=== PATIENT | female | born 1930 | race Caucasian/White ===

== ENCOUNTER 2018-10-05 12:33 | Emergency (ER) | payer MEDICARE ==
[2018-10-05] MEDS ORDERED: Acetaminophen 500 MG Tab PO ONE (13:14)
--- NOTE | 2018-10-05 13:21 | EDM.PDOC ---
ED HPI GENERAL MEDICAL PROBLEM - General Chief Complaint: Neurological Problem Stated Complaint: FALL LAST NIGHT Time Seen by Provider: 10/05/18 13:10 Source of Information: Reports: Patient, Family, Old Records, RN History Limitations: Reports: No Limitations - History of Present Illness INITIAL COMMENTS - FREE TEXT/NARRATIVE: 87 yo female with dementia who lives at an assisted living facility presents via her sons after being found sitting on the floor this morning incontinent of stool/urine. Is not clear how long she was there. Has some stiffness in her back and hips as her only complaint. Staff worried about a UTI. Generally uses a walker to get around, falling more as time elapses over the past couple of yrs. 09/19/18 was given TMP/SMZ x 10 days. Culture of her urine at that last visit grew 50,000-100,000 colonies of E.Coli sensitive to Cipro. Onset: Today Onset Date: 10/05/18 Duration: Other (unknown) Location: Reports: Generalized Quality: Reports: Ache (mild) Severity: Mild Improves with: Reports: Rest Worsens with: Reports: Movement Context: Reports: Trauma (? fall) Associated Symptoms: Reports: Other (incontinence) Treatments SENIOR AUDITOR: Reports: Other (see below) (none) - Related Data Allergies Allergy/AdvReac Type Severity Reaction Status Date / Time celecoxib [From Celebrex] Allergy Cannot Verified 10/05/18 12:36 Remember lovastatin Allergy Cannot Verified 10/05/18 12:36 Remember Home Meds: Home Meds Atenolol 1 tab PO DAILY 10/05/18 [History] Dextran 70/Hypromellose/PF [Artificial Tears Drops] 1 drop TOP DAILY 10/05/18 [ History] Donepezil HCl [Aricept] 1 tab PO DAILY 10/05/18 [History] Naproxen Sodium [Aleve] 1 tab PO BID PRN 10/05/18 [History] Oxybutynin Chloride [Ditropan Xl] 1 tab PO DAILY 10/05/18 [History] prednisoLONE acetate [Pred Forte 1% Ophth Susp] 1 drop TOP DAILY 10/05/18 [ History] Social & Family History - Tobacco Use Smoking Status *Q: Never Smoker Review of Systems - Review of Systems Review Of Systems: See Below Constitutional: Reports: No Symptoms Eyes: Reports: No Symptoms Ears: Reports: No Symptoms Nose: Reports: No Symptoms Mouth/Throat: Reports: No Symptoms Respiratory: Reports: No Symptoms Cardiovascular: Reports: No Symptoms GI/Abdominal: Reports: No Symptoms Genitourinary: Reports: Incontinence Musculoskeletal: Reports: Back Pain (mild), Joint Pain (mild hip pains) Skin: Reports: No Symptoms Neurological: Reports: Confusion (not worse than usual. ) ED EXAM, GENERAL - Physical Exam Exam: See Below Exam Limited By: No Limitations General Appearance: Alert, WD/WN, No Apparent Distress, Obese Eye Exam: Bilateral Eye: Normal Inspection Ears: Normal External Exam, Normal Canal, Normal TMs, Other (bilateral hearing aids) Ear Exam: Bilateral Ear: Auricle Normal, Canal Normal, TM normal Nose: Normal Inspection, No Blood Throat/Mouth: Normal Inspection, Normal Lips, Normal Oropharynx, Normal Voice, No Airway Compromise Head: Atraumatic, Normocephalic Neck: Normal Inspection Respiratory/Chest: No Respiratory Distress, Lungs Clear, Normal Breath Sounds, No Accessory Muscle Use Cardiovascular: Regular Rate, Rhythm, No Edema GI/Abdominal: Normal Bowel Sounds, Soft, Non-Tender, No Distention Back Exam: Normal Inspection. No: CVA Tenderness (R), CVA Tenderness (L) Extremities: Normal Inspection, Normal Range of Motion, Non-Tender, No Pedal Edema Neurological: Alert, CN II-XII Intact, Normal Cognition, No Motor/Sensory Deficits, Other (mildly confused(not new)) Psychiatric: Normal Affect, Normal Mood Skin Exam: Warm, Dry, Intact, Normal Color, No Rash Course - Vital Signs Last Recorded V/S: Last Vital Signs Temp 35.4 C 10/05/18 13:22 Pulse 61 10/05/18 13:22 Resp 16 10/05/18 13:22 BP 152/78 H 10/05/18 13:22 Pulse Ox 94 L 10/05/18 13:22 - Orders/Labs/Meds Orders: Active Orders 24 hr Category Date Time Status CULTURE URINE [RM] Stat Lab 10/05/18 14:40 Received Labs: Laboratory Tests 10/05/18 Range/Units 14:19 Urine Color Yellow Urine Appearance Clear Urine pH 7.0 (4.5-8.0) Ur Specific [place] 1.015 (1.008-1.030) Urine Protein Negative (NEGATIVE) mg/dL Urine Glucose (UA) Normal (NEGATIVE) mg/dL Urine Ketones 15 H (NEGATIVE) mg/dL Urine Occult Blood Moderate (NEGATIVE) Urine Nitrite Negative (NEGATIVE) Urine Bilirubin Negative (NEGATIVE) Urine Urobilinogen Normal (NORMAL) mg/dL Ur Leukocyte Esterase Small (NEGATIVE) Urine RBC 10-20 H (0-5) Urine WBC 20-30 H (0-5) Ur Epithelial Cells Few Amorphous Sediment Not seen Urine Bacteria Moderate Urine Mucus Numerous Meds: Medications Discontinued Medications Generic Name Dose Route Start Last Admin Trade Name Freq PRN Reason Stop Dose Admin Acetaminophen 1,000 mg 10/05/18 13:14 10/05/18 13:35 Tylenol Extra Strength PO 10/05/18 13:15 1,000 mg ONETIME ONE Administration Departure - Departure Time of Disposition: 15:13 Disposition: Home, Self-Care 01 Condition: Fair Clinical Impression: UTI (urinary tract infection) Qualifiers: Urinary tract infection type: acute cystitis Hematuria presence: without hematuria Qualified Code(s): N30.00 - Acute cystitis without hematuria - Discharge Information *PRESCRIPTION DRUG MONITORING PROGRAM REVIEWED*: No *COPY OF PRESCRIPTION DRUG MONITORING REPORT IN PATIENT SHILO: No Instructions: Urinary Tract Infection, Adult Referrals: Rojas Rivera MD [Primary Care Provider] - Forms: ED Department Discharge Additional Instructions: Take ciprofloxacin as directed until gone. Recheck in a week with her primary, return here if worse. - My Orders Last 24 Hours: My Active Orders 10/05/18 14:40 CULTURE URINE [] Stat - Assessment/Plan Last 24 Hours: My Active Orders 10/05/18 14:40 CULTURE URINE [RM] Stat
== END 2018-10-05 16:06 | disposition home or self-care (01) ==
LOC: JP.ED 12:33
DX: N30.00 Acute cystitis without hematuria (principal); Z79.899 Other long term (current) drug therapy; Z88.1 Allergy status to other antibiotic agents; Z88.8 Allergy status to other drugs, medicaments and biological substances
CPT/HCPCS: 81001; 87086; 87088; 87186; 99283; A9270

== ENCOUNTER 2019-08-15 09:37 | Emergency (ER) | payer MEDICARE ==
--- NOTE | 2019-08-15 10:38 | EDM.PDOC ---
ED HPI GENERAL MEDICAL PROBLEM - General Chief Complaint: Genitourinary Problem Stated Complaint: BLEEDING POSSIBLE UTI Time Seen by Provider: 08/15/19 10:10 Source of Information: Reports: Family, [place] Records History Limitations: Reports: Other (Patient has significant short-term memory loss and dementia) - History of Present Illness INITIAL COMMENTS - FREE TEXT/NARRATIVE: 88-year-old female who is been treated for UTI recently, is having an increased amount of bleeding that is possibly vaginal or possibly urinary. She continues to have urinary frequency, with a constant incontinent dribble but over the past several days she has had marked increase in vaginal or urinary bleeding. No fevers or chills. No significant pain. This morning within 1 hour she felt like she had to urinate 3 times. Onset: Unknown/Unsure (Has been bleeding heavier at least for the past couple of days.) - Related Data Allergies Allergy/AdvReac Type Severity Reaction Status Date / Time celecoxib [From Celebrex] Allergy Cannot Verified 08/15/19 10:00 Remember lovastatin Allergy Cannot Verified 08/15/19 10:00 Remember Home Meds: Home Meds Dextran 70/Hypromellose/PF [Artificial Tears Drops] 1 drop TOP DAILY 10/05/18 [ History] Donepezil HCl [Aricept] 1 tab PO DAILY 10/05/18 [History] Naproxen Sodium [Aleve] 1 tab PO BID PRN 10/05/18 [History] Oxybutynin Chloride [Ditropan Xl] 1 tab PO DAILY 10/05/18 [History] atenoloL [Atenolol] 50 mg PO DAILY 10/05/18 [History] prednisoLONE acetate [Pred Forte 1% Ophth Susp] 1 drop TOP DAILY 10/05/18 [ History] Cetirizine [ZyrTEC] 10 mg PO DAILY 08/15/19 [History] Fluticasone Propionate [Flonase] 1 spray INH BID 08/15/19 [History] Past Medical History HEENT History: Reports: Hard of Hearing Cardiovascular History: Reports: Afib, Hypertension Other Cardiovascular History: venous insufficiency Genitourinary History: Reports: Urinary Incontinence, Other (See Below) Other Genitourinary History: recent UTI 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: Musculoskeletal History: Reports: Osteoarthritis, Other (See Below) Other Musculoskeletal History: carpal tunnel syndrome Neurological History: Reports: Alzheimers Disease Psychiatric History: Reports: Alzheimers Disease, Dementia - Past Surgical History Head Surgeries/Procedures: Reports: None HEENT Surgical History: Reports: None Cardiovascular Surgical History: Reports: None Female Surgical History: Reports: None Neurological Surgical History: Reports: None Musculoskeletal Surgical History: Reports: None Dermatological Surgical History: Reports: None Social & Family History - Tobacco Use Smoking Status *Q: Never Smoker - Caffeine Use Caffeine Use: Reports: Coffee, Soda, Tea - Recreational Drug Use Recreational Drug Use: No ED ROS GENERAL - Review of Systems Review Of Systems: See Below Constitutional: Denies: Fever, Chills, Malaise HEENT: Reports: Other (Patient had an episode of epistaxis recently that stopped spontaneously) Respiratory: Denies: Shortness of Breath Cardiovascular: Denies: Chest Pain GI/Abdominal: Denies: Abdominal Pain, Diarrhea, Vomiting : Reports: Frequency, Hematuria, Urgency Skin: Reports: Pallor Neurological: Reports: Confusion (Chronic and stable) ED EXAM, GENERAL - Physical Exam Exam: See Below Exam Limited By: No Limitations General Appearance: Alert, No Apparent Distress Eye Exam: Right Eye: Conjunctival Injection (Left conjunctival injection is chronic), Bilateral Eye: EOMI Head: Atraumatic Respiratory/Chest: No Respiratory Distress, Lungs Clear Cardiovascular: Regular Rate, Rhythm GI/Abdominal: Soft, Tender (Patient is tender across the lower abdomen and feels full like there is a full bladder or enlarged uterus) (Female) Exam: Normal External Exam, Other (Significant blood at the meatus and vaginal opening, no obvious lesions) Neurological: Alert, Confused. No: Oriented, Inattentive Psychiatric: Normal Affect, Normal Mood Skin Exam: Warm, Dry Course - Vital Signs Last Recorded V/S: Last Vital Signs Temp 97.2 F 08/15/19 09:57 Pulse 69 08/15/19 12:20 Resp 18 08/15/19 12:20 BP 150/66 H 08/15/19 12:20 Pulse Ox 97 08/15/19 12:20 - Orders/Labs/Meds Orders: Active Orders 24 hr Category Date Time Status UA W/MICROSCOPIC [URIN] Urgent Lab 08/15/19 10:05 Ordered Labs: Laboratory Tests 08/15/19 08/15/19 Range/Units 10:48 10:48 WBC 9.3 (4.5-11.0) K/uL RBC 4.42 (3.30-5.50) M/uL Hgb 13.1 (12.0-15.0) g/dL Hct 42.6 (36.0-48.0) % MCV 96 (80-98) fL MCH 30 (27-31) pg MCHC 31 L (32-36) % Plt Count 271 (150-400) K/uL Neut % (Auto) 88 H (36-66) % Lymph % (Auto) 8 L (24-44) % [place] % (Auto) 4 (2-6) % Eos % (Auto) 0 L (2-4) % Baso % (Auto) 0 (0-1) % Sodium 141 (140-148) mmol/L Potassium 4.0 (3.6-5.2) mmol/L Chloride 105 (100-108) mmol/L Carbon Dioxide 26 (21-32) mmol/L Anion Gap 9.9 (5.0-14.0) mmol/L BUN 21 H (7-18) mg/dL Creatinine 0.9 (0.6-1.0) mg/dL Est Cr Clr Drug Dosing 45.83 mL/min Estimated GFR (MDRD) 59 L (>60) Glucose 166 H (74-106) mg/dL Calcium 8.6 (8.5-10.1) mg/dL - Re-Assessments/Exams Free Text/Narrative Re-Assessment/Exam: 08/15/19 10:42 A mini cath UA was placed into the urethra, there was a small amount of bleeding present but no significant urine for study. CBC and BMP were then obtained as well as a lower abdomen ultrasound. 08/15/19 13:09 Hemoglobin is normal, abdomen ultrasound revealed a 6 x 5 x 6 cm sized clotted blood clot in the bladder. After discussing the findings with the patient and her son, we elected to try to irrigate the bladder with a three-way catheter. 08/15/19 14:01 Irrigation released a lot of blood clots and about a liter of very dark red urine before it started to clear. After 2 L of fluid the urine was almost completely clear. I discussed this with her primary provider Dr. Rivera, we decided to pull the [place] for the weekend and he will see her next week. Departure - Departure Time of Disposition: 15:23 Disposition: DC/[facility]fer to [facility] Clinical Impression: Hematuria syndrome - Discharge Information Instructions: Hematuria, Adult Referrals: Rojas Rivera MD [Primary Care Provider] - Forms: ED Department Discharge Care Plan Goals: Recheck with Dr. Rivera next as planned. She can return to the emergency room if pain or fever develops or concerns for significant blood loss. Sepsis Event Note - Evaluation Sepsis Screening Result: No Definite Risk - Focused Exam Vital Signs: Vital Signs Temp Pulse Resp BP Pulse Ox 08/15/19 12:20 69 18 150/66 H 97 08/15/19 09:57 97.2 F 91 16 124/65 91 L Date Exam was Performed: 08/15/19 Time Exam was Performed: 15:29 - My Orders Last 24 Hours: My Active Orders 08/15/19 10:05 UA W/MICROSCOPIC [URIN] Urgent - Assessment/Plan Last 24 Hours: My Active Orders 08/15/19 10:05 UA W/MICROSCOPIC [URIN] Urgent
--- NOTE | 2019-08-15 12:52 | US ---
Pelvis Non OB Comp CLINICAL HISTORY: Hematuria/vaginal bleeding FINDINGS: Real-time transabdominal images were obtained through the pelvis. In the bladder there was a 6 x 5 x 6 cm heterogeneous echogenic focus. This most likely represents clot. Underlying mass is not absolutely excluded. Doppler showed no internal color flow. No extravesical mass is identified. Uterus is postmenopausal in appearance. Endometrium measures 3 mm. IMPRESSION: 6 x 5 x 6 cm heterogeneous filling defect in the bladder. This most likely represents clot. Underlying mass is not felt likely but cannot be excluded Postmenopausal uterus
== END 2019-08-15 15:23 ==
LOC: JP.ED 09:37
DX: R31.9 Hematuria, unspecified (principal); I10 Essential (primary) hypertension; G30.9 Alzheimer's disease, unspecified; F02.80 Dementia in other diseases classified elsewhere, unspecified severity, without behavioral disturbance, psychotic disturbance, mood disturbance, and anxiety; I48.91 Unspecified atrial fibrillation; Z88.8 Allergy status to other drugs, medicaments and biological substances; Z79.899 Other long term (current) drug therapy
CPT/HCPCS: 36415; 51700; 51798; 76856; 76856-26; 80048; 85025; 99284; 99284-25